=== PATIENT | male | born 1985 | race Hispanic/Latino ===

== ENCOUNTER → 2019-04-04 | Outpatient (CLI) | payer MEDICARE ==
[2019-04-04 16:43] VITALS: BP 118/86
== END | disposition home or self-care (01) ==
LOC: WHH 13:30
PROVIDERS: ATTEND Family Medicine
DX: L89.323 Pressure ulcer of left buttock, stage 3 (principal); S31.109A Unspecified open wound of abdominal wall, unspecified quadrant without penetration into peritoneal cavity, initial encounter; I10 Essential (primary) hypertension; L73.2 Hidradenitis suppurativa; Q05.4 Unspecified spina bifida with hydrocephalus; N50.89 Other specified disorders of the male genital organs; F03.90 Unspecified dementia, unspecified severity, without behavioral disturbance, psychotic disturbance, mood disturbance, and anxiety; Z99.3 Dependence on wheelchair; X58.XXXA Exposure to other specified factors, initial encounter; Y93.89 Activity, other specified; Y92.89 Other specified places as the place of occurrence of the external cause; Y99.8 Other external cause status
CPT/HCPCS: 11042; A4450; A6197; G0463

== ENCOUNTER → 2019-04-11 | Outpatient (CLI) | payer MEDICARE ==
[2019-04-11 15:25] VITALS: BP 102/78
== END | disposition home or self-care (01) ==
LOC: WHH 13:00
PROVIDERS: ATTEND Family Medicine
DX: L89.323 Pressure ulcer of left buttock, stage 3 (principal); L98.491 Non-pressure chronic ulcer of skin of other sites limited to breakdown of skin; L73.2 Hidradenitis suppurativa; I10 Essential (primary) hypertension; N50.89 Other specified disorders of the male genital organs; G82.20 Paraplegia, unspecified; Q05.4 Unspecified spina bifida with hydrocephalus; F03.90 Unspecified dementia, unspecified severity, without behavioral disturbance, psychotic disturbance, mood disturbance, and anxiety; Z98.2 Presence of cerebrospinal fluid drainage device; Z99.3 Dependence on wheelchair
CPT/HCPCS: 11042; A6213

== ENCOUNTER → 2019-04-18 | Outpatient (CLI) | payer MEDICARE ==
[~2019-04-18] MED LIST: LIDOCAINE/PRILOCAINE CREAM 5GM TUBE TP ONE
[2019-04-18 15:35] VITALS: BP 115/84
== END | disposition home or self-care (01) ==
LOC: WHH 13:00
PROVIDERS: ATTEND Family Medicine
DX: S31.109D Unspecified open wound of abdominal wall, unspecified quadrant without penetration into peritoneal cavity, subsequent encounter (principal); L73.2 Hidradenitis suppurativa; I10 Essential (primary) hypertension; N50.89 Other specified disorders of the male genital organs; G82.20 Paraplegia, unspecified; Q05.4 Unspecified spina bifida with hydrocephalus; F03.90 Unspecified dementia, unspecified severity, without behavioral disturbance, psychotic disturbance, mood disturbance, and anxiety; Z98.2 Presence of cerebrospinal fluid drainage device; Z99.3 Dependence on wheelchair; X58.XXXD Exposure to other specified factors, subsequent encounter
CPT/HCPCS: A6210; G0463; J3490

== ENCOUNTER 2019-04-25 13:00 | Outpatient (CLI) | payer MEDICARE ==
[2019-04-25 15:43] VITALS: BP 131/89
== END 2019-04-25 16:20 | disposition home or self-care (01) ==
LOC: WHH 13:00
PROVIDERS: ATTEND Family Medicine
DX: S31.109D Unspecified open wound of abdominal wall, unspecified quadrant without penetration into peritoneal cavity, subsequent encounter (principal); L73.2 Hidradenitis suppurativa; I10 Essential (primary) hypertension; N50.89 Other specified disorders of the male genital organs; G82.20 Paraplegia, unspecified; Q05.4 Unspecified spina bifida with hydrocephalus; F03.90 Unspecified dementia, unspecified severity, without behavioral disturbance, psychotic disturbance, mood disturbance, and anxiety; Z99.3 Dependence on wheelchair; Z98.2 Presence of cerebrospinal fluid drainage device; X58.XXXD Exposure to other specified factors, subsequent encounter
CPT/HCPCS: G0463

== ENCOUNTER → 2020-04-29 | Outpatient (CLI) | payer MEDICARE | END | disposition home or self-care (01) | LOC: WHH 08:45 | PROVIDERS: ATTEND Family Medicine | DX: L89.224 Pressure ulcer of left hip, stage 4 (principal); L89.324 Pressure ulcer of left buttock, stage 4; I10 Essential (primary) hypertension; R26.9 Unspecified abnormalities of gait and mobility; Q05.2 Lumbar spina bifida with hydrocephalus; N50.89 Other specified disorders of the male genital organs; L73.2 Hidradenitis suppurativa; F03.90 Unspecified dementia, unspecified severity, without behavioral disturbance, psychotic disturbance, mood disturbance, and anxiety; Z98.2 Presence of cerebrospinal fluid drainage device | CPT/HCPCS: A6021; A6197; G0463 ==

== ENCOUNTER → 2020-05-06 | Outpatient (CLI) | payer MEDICARE | END | disposition home or self-care (01) | LOC: WHH 08:30 | PROVIDERS: ATTEND Family Medicine | DX: L89.324 Pressure ulcer of left buttock, stage 4 (principal); L73.2 Hidradenitis suppurativa; I10 Essential (primary) hypertension; R26.9 Unspecified abnormalities of gait and mobility; Q05.2 Lumbar spina bifida with hydrocephalus; N50.89 Other specified disorders of the male genital organs; F03.90 Unspecified dementia, unspecified severity, without behavioral disturbance, psychotic disturbance, mood disturbance, and anxiety; Z98.2 Presence of cerebrospinal fluid drainage device | CPT/HCPCS: 87070 ×2; 87077 ×3; 87186 ×3; A4450; A6021; A6197; G0463 ==

== ENCOUNTER → 2020-05-13 | Outpatient (CLI) | payer MEDICARE | END | disposition home or self-care (01) | LOC: WHH 08:30 | PROVIDERS: ATTEND Family Medicine | DX: L89.324 Pressure ulcer of left buttock, stage 4 (principal); L73.2 Hidradenitis suppurativa; I10 Essential (primary) hypertension; R26.9 Unspecified abnormalities of gait and mobility; Q05.2 Lumbar spina bifida with hydrocephalus; N50.89 Other specified disorders of the male genital organs; F03.90 Unspecified dementia, unspecified severity, without behavioral disturbance, psychotic disturbance, mood disturbance, and anxiety; Z98.2 Presence of cerebrospinal fluid drainage device | CPT/HCPCS: A6021; A6197; G0463 ==

== ENCOUNTER → 2020-05-20 | Outpatient (CLI) | payer MEDICARE | END | disposition home or self-care (01) | LOC: WHH 08:40 | PROVIDERS: ATTEND Family Medicine | DX: L89.324 Pressure ulcer of left buttock, stage 4 (principal); L73.2 Hidradenitis suppurativa; I10 Essential (primary) hypertension; R26.9 Unspecified abnormalities of gait and mobility; Q05.2 Lumbar spina bifida with hydrocephalus; N50.89 Other specified disorders of the male genital organs; F03.90 Unspecified dementia, unspecified severity, without behavioral disturbance, psychotic disturbance, mood disturbance, and anxiety; Z98.2 Presence of cerebrospinal fluid drainage device | CPT/HCPCS: 97605; G0463 ==

== ENCOUNTER → 2020-05-27 | Outpatient (CLI) | payer MEDICARE | END | disposition home or self-care (01) | LOC: WHH 08:30 | PROVIDERS: ATTEND Family Medicine | DX: L89.324 Pressure ulcer of left buttock, stage 4 (principal); L73.2 Hidradenitis suppurativa; I10 Essential (primary) hypertension; R26.9 Unspecified abnormalities of gait and mobility; Q05.2 Lumbar spina bifida with hydrocephalus; N50.89 Other specified disorders of the male genital organs; F03.90 Unspecified dementia, unspecified severity, without behavioral disturbance, psychotic disturbance, mood disturbance, and anxiety; Z98.2 Presence of cerebrospinal fluid drainage device | CPT/HCPCS: 97605; G0463 ==

== ENCOUNTER → 2020-06-03 | Outpatient (CLI) | payer MEDICARE | END | disposition home or self-care (01) | LOC: WHH 08:45 | PROVIDERS: ATTEND Family Medicine | DX: L89.324 Pressure ulcer of left buttock, stage 4 (principal); L73.2 Hidradenitis suppurativa; I10 Essential (primary) hypertension; R26.9 Unspecified abnormalities of gait and mobility; Q05.2 Lumbar spina bifida with hydrocephalus; N50.89 Other specified disorders of the male genital organs; F03.90 Unspecified dementia, unspecified severity, without behavioral disturbance, psychotic disturbance, mood disturbance, and anxiety; Z98.2 Presence of cerebrospinal fluid drainage device | CPT/HCPCS: 97605; G0463 ==

== ENCOUNTER → 2020-06-10 | Outpatient (CLI) | payer MEDICARE ==
[~2020-06-10] MED LIST changes: +LIDOCAINE HCL 2% JELLY 5 ML ONE; -LIDOCAINE/PRILOCAINE CREAM 5GM TUBE TP ONE
== END | disposition home or self-care (01) ==
LOC: WHH 08:00
PROVIDERS: ATTEND Family Medicine
DX: L89.324 Pressure ulcer of left buttock, stage 4 (principal); L73.2 Hidradenitis suppurativa; I10 Essential (primary) hypertension; R26.9 Unspecified abnormalities of gait and mobility; Q05.2 Lumbar spina bifida with hydrocephalus; N50.89 Other specified disorders of the male genital organs; F03.90 Unspecified dementia, unspecified severity, without behavioral disturbance, psychotic disturbance, mood disturbance, and anxiety; Z98.2 Presence of cerebrospinal fluid drainage device
CPT/HCPCS: 97605; G0463

== ENCOUNTER → 2020-06-17 | Outpatient (CLI) | payer MEDICARE | END | disposition home or self-care (01) | LOC: WHH 08:00 | PROVIDERS: ATTEND Family Medicine | DX: L89.324 Pressure ulcer of left buttock, stage 4 (principal); L73.2 Hidradenitis suppurativa; I10 Essential (primary) hypertension; R26.9 Unspecified abnormalities of gait and mobility; Q05.2 Lumbar spina bifida with hydrocephalus; N50.89 Other specified disorders of the male genital organs; F03.90 Unspecified dementia, unspecified severity, without behavioral disturbance, psychotic disturbance, mood disturbance, and anxiety; Z98.2 Presence of cerebrospinal fluid drainage device | CPT/HCPCS: A6021; A6197; G0463 ==

== ENCOUNTER → 2020-06-24 | Outpatient (CLI) | payer MEDICARE | END | disposition home or self-care (01) | LOC: WHH 08:00 | PROVIDERS: ATTEND Family Medicine | DX: L89.324 Pressure ulcer of left buttock, stage 4 (principal); L73.2 Hidradenitis suppurativa; I10 Essential (primary) hypertension; R26.9 Unspecified abnormalities of gait and mobility; Q05.9 Spina bifida, unspecified; N50.89 Other specified disorders of the male genital organs; F03.90 Unspecified dementia, unspecified severity, without behavioral disturbance, psychotic disturbance, mood disturbance, and anxiety; Z98.2 Presence of cerebrospinal fluid drainage device | CPT/HCPCS: 11042; A6021; A6197 ==

== ENCOUNTER → 2020-07-01 | Outpatient (CLI) | payer MEDICARE | END | disposition home or self-care (01) | LOC: WHH 08:00 | PROVIDERS: ATTEND Family Medicine | DX: L89.324 Pressure ulcer of left buttock, stage 4 (principal); L73.2 Hidradenitis suppurativa; I10 Essential (primary) hypertension; R26.9 Unspecified abnormalities of gait and mobility; Q05.9 Spina bifida, unspecified; N50.89 Other specified disorders of the male genital organs; F03.90 Unspecified dementia, unspecified severity, without behavioral disturbance, psychotic disturbance, mood disturbance, and anxiety; Z98.2 Presence of cerebrospinal fluid drainage device | CPT/HCPCS: A4450; A6021; A6197; G0463 ==

== ENCOUNTER → 2020-07-08 | Outpatient (CLI) | payer MEDICARE | END | disposition home or self-care (01) | LOC: WHH 08:00 | PROVIDERS: ATTEND Family Medicine | DX: L89.324 Pressure ulcer of left buttock, stage 4 (principal); L73.2 Hidradenitis suppurativa; I10 Essential (primary) hypertension; R26.9 Unspecified abnormalities of gait and mobility; Q05.9 Spina bifida, unspecified; N50.89 Other specified disorders of the male genital organs; F03.90 Unspecified dementia, unspecified severity, without behavioral disturbance, psychotic disturbance, mood disturbance, and anxiety; Z98.2 Presence of cerebrospinal fluid drainage device | CPT/HCPCS: G0463 ==